=== PATIENT | male | born 1960 | race Caucasian/White ===

== ENCOUNTER 2018-09-11 10:56 | Emergency (ER) | payer MEDICAID ==
[~2018-09-11] VITALS: Ht 182.9 cm; Wt 100.1 kg
[2018-09-11 13:22] VITALS: BP 144/87
--- NOTE | 2018-09-11 13:29 | NUR ---
pt rcvd TDAP and Xrays, was seen and eval by provider, will send to Dr Blake for further eval and treatment, wound was dressed by tech
== END 2018-09-11 14:27 | disposition home or self-care (01) ==
LOC: ER 10:56
DX: S62.615A Displaced fracture of proximal phalanx of left ring finger, initial encounter for closed fracture (principal); S62.617A Displaced fracture of proximal phalanx of left little finger, initial encounter for closed fracture; S61.217A Laceration without foreign body of left little finger without damage to nail, initial encounter; S80.812A Abrasion, left lower leg, initial encounter; S80.811A Abrasion, right lower leg, initial encounter; W18.09XA Striking against other object with subsequent fall, initial encounter; Y93.89 Activity, other specified; Y92.89 Other specified places as the place of occurrence of the external cause; Y99.8 Other external cause status
CPT/HCPCS: 26742; 73130; 90471; 90715; 99284; J3490